=== PATIENT | female | born 1955 | race American Indian/Alaskan Native ===

== ENCOUNTER 2017-08-10 21:45 | Emergency (ER) | payer BC, MEDICARE ==
[2017-08-10] MEDS ORDERED: DiphenhydrAMINE 50 mg/ml Inj IVP STA (21:50)
[2017-08-10] MEDS ORDERED: Sodium Chloride 0.9% 1,000 ML IV SCH (22:15)
--- NOTE | 2017-08-10 22:15 | ED PDOC ---
Arrival/HPI - General Historian: Patient - History of Present Illness Activities at Onset: Light <Kevin Montilla - Last Filed: 08/10/17 22:37> - General Historian: Patient - History of Present Illness Time/Duration: Other (started at 21:15, arrived at 21:50) Symptom Onset: Sudden Symptom Course: Improving <Marcia Trorez - Last Filed: 08/11/17 01:16> - General Time Seen by Provider: 08/10/17 21:47 - History of Present Illness Narrative History of Present Illness (Text): 08/10/17 22:12 62F presents with difficulty breathing and tongue swelling after eating shrimp for dinner at 21:15. Patient states that she's had one other incident of allergic reaction in the past in 1998, patient had shrimp and had tongue swelling that was more enlarged than this ER visit. Patient states she feels a little better than when she came in. Patient states she's feeling pruritis all over. Patient states she does not take ACEI inhibitor 08/10/17 22:13 allergies: shellfish (shrimp) leads to tongue swelling, edema, rash, and sob ( Marcia Torrez) Past Medical History - Provider Review Nursing Documentation Reviewed: Yes - Travel History Have you recently traveled outside [place] w/in the past 3 mons?: No - Cardiac Hx Pacemaker: No - Neurological Hx Paralysis: No - Hematological/Oncological Hx Blood Transfusions: No Hx Blood Transfusion Reaction: No - Musculoskeletal/Rheumatological Hx Musculoskeletal Disorders: Yes - Psychiatric Hx Emotional Abuse: No Hx Physical Abuse: No Hx Substance Use: No - Anesthesia Hx Anesthesia Reactions: No Hx Malignant Hyperthermia: No - Suicidal Assessment Feels Threatened In Home Enviroment: No <Marcia Torrez - Last Filed: 08/11/17 01:16> Family/Social History - Physician Review Nursing Documentation Reviewed: Yes Family/Social History: No Known Family HX Smoking Status: Never Smoked Hx Alcohol Use: Yes (OCCASIONAL) Hx Substance Use: No <Marcia Torrez - Last Filed: 08/11/17 01:16> Allergies/Home Meds <Kevin Montilla - Last Filed: 08/10/17 22:37> <Marcia Torrez - Last Filed: 08/11/17 01:16> Allergies/Adverse Reactions: Allergies shellfish derived Allergy (Verified 08/10/17 21:55) ANAPHYLAXIS Home Medications: Home Meds Medication Instructions Recorded Confirmed Armodafinil [Nuvigil] 150 mg PO DAILY 08/16/12 08/16/12 Atropine Sulf/Hyoscyamine Agosto 2 tab PO WM 08/16/12 08/16/12 [] Dexlansoprazole [Dexilant] 60 mg PO DAILY 08/16/12 08/16/12 Diclofenac Potassium [Cambia] 50 mg PO PRN 08/16/12 08/16/12 Duloxetine Hydrochloride [Cymbalta] 60 mg PO QPM 08/16/12 08/16/12 Gabapentin [Gralise] 300 mg PO QAM 08/16/12 08/16/12 Gabapentin [Gralise] 600 mg PO QPM 08/16/12 08/16/12 Ibandronate Sodium [Boniva] 150 mg PO Q30D 08/16/12 08/16/12 Levalbuterol Tartrate [Xopenex Hfa] 1 puff IH PRN 08/16/12 08/16/12 Lubiprostone [Amitiza] 2 tab PO DAILY 08/16/12 08/16/12 Metoclopramide Hydrochloride 10 mg PO PRN 08/16/12 08/16/12 [Reglan] l-Methylfolate/Methylcobalam1 1 tab PO DAILY 08/16/12 08/16/12 [Metanx 2.8 mg-2 mg-25 mg] Metoprolol Tartrate [Lopressor] 25 mg PO BID 08/19/12 08/19/12 Cefadroxil [Duricef] 500 mg PO 08/21/12 08/21/12 Tylenol/Codiene 30 PO Q4 PRN 08/21/12 08/21/12 Review of Systems - Physician Review All systems were reviewed & negative as marked: Yes - Review of Systems Constitutional: absent: Fatigue, Weight Change, Fevers Eyes: absent: Vision Changes, Photophobia, Eye Pain ENT: Other (tongue swelling). absent: Hearing Changes, Tinnitus, TMJ Pain, Sinus Congestion Respiratory: SOB. absent: Cough, Wheezing Cardiovascular: absent: Chest Pain, Palpitations, Edema Gastrointestinal: absent: Abdominal Pain, Stool Changes, Constipation, Appetite Changes, Hematochezia, Hematemesis Genitourinary Female: absent: Dysuria, Frequency, Hematuria Musculoskeletal: absent: Arthralgias, Back Pain, Neck Pain Skin: Rash. absent: Pruritis, Skin Lesions, Laceration Neurological: Headache. absent: Dizziness, Focal Weakness, Gait Changes, Facial Droop, Disequilibrium Endocrine: absent: Diaphoresis Hemo/Lymphatic: absent: Adenopathy, Easy Bleeding, Easy Bruising Psychiatric: absent: Anxiety, Depression, Suicidal Ideation <Eng,Marcia - Last Filed: 08/11/17 01:16> Physical Exam Vital Signs Reviewed: Yes Temperature: Afebrile Blood Pressure: Normal Pulse: Regular Respiratory Rate: Normal Appearance: Positive for: Uncomfortable Mental Status: Positive for: Alert and Oriented X 3 - Systems Exam Head: Present: Atraumatic, Normocephalic Pupils: Present: PERRL Extroacular Muscles: Present: EOMI, Other (periorbital swelling) Conjunctiva: Present: Normal. No: Injected, Icteric Mouth: Present: Moist Mucous Membranes Pharnyx: Present: Muffled/Hoarse Voice (patient has an enlarged tongue). No: Strider Nose (External): Present: Atraumatic. No: Abrasion, Contusion, Laceration Nose (Internal): Present: Normal Inspection, Moist. No: No Active Bleeding, Engorged, Edematous Neck: Present: Normal Range of Motion, Trachea Midline. No: JVD, Lymphadenopathy Respiratory/Chest: Present: Clear to Auscultation, Good Air Exchange, Decreased Breath Sounds. No: Respiratory Distress, Accessory Muscle Use, Wheezes, Retracting, Rhonchi Cardiovascular: Present: Regular Rate and Rhythm, Normal S1, S2. No: Murmurs Abdomen: Present: Distention, Normal Bowel Sounds. No: Tenderness, Peritoneal Signs Back: Present: Normal Inspection. No: CVA Tenderness, Midline Tenderness Upper Extremity: Present: Normal Inspection, Normal ROM, NORMAL PULSES, Capillary Refill < 2s. No: Edema Lower Extremity: Present: Normal Inspection, NORMAL PULSES, Normal ROM, Capillary Refill < 2 s. No: Edema Neurological: Present: GCS=15, CN II-XII Intact, Speech Normal Skin: Present: Warm, Dry, Normal Color Psychiatric: Present: Alert, Oriented x 3, Normal Insight, Normal Concentration <Eng,Marcia - Last Filed: 08/11/17 01:16> Vital Signs Temp Pulse Resp BP Pulse Ox 08/10/17 23:23 98.4 F 61 17 161/80 H 98 Medical Decision Making <Kevin Montilla - Last Filed: 08/10/17 22:37> <Marcia Torrez - Last Filed: 08/11/17 01:16> ED Course and Treatment: Patient Seen With Resident: In agreement with resident note which contains more details about the patient. Patient was seen and evaluated with resident. Came up with plan and treatment together. 62 year old female presents complaining of difficulty breathing and tongue swelling after eating shrimp for Dinner 1-2 hours ago. Plan: -- Benadryl -- Pepcid -- Solu-Medrol -- IV Fluids -- Zofran Inj (Kevin Montilla) 08/10/17 22:21 Solumedrol 125mg IVP stat Benadryl 50cc IVP Stat Zofran 4mg IVP stat Pepcid 20 mg IVP stat IVF NS 100cc/hr 08/10/17 22:36 Revisited. Patient states she's feeling better but still feels like her mouth is full. Tongue is smaller than on arrival (Marcia Torrez) - Medication Orders Current Medication Orders: Sodium Chloride (Sodium Chloride 0.9%) 1,000 mls @ 100 mls/hr IV .Q10H TIANNA Last Admin: 08/10/17 22:22 Dose: 100 mls/hr eMAR Start Stop Document 08/10/17 22:22 RD (Rec: 08/10/17 22:22 RD [id number]) Intravenous Solution Start Date 08/10/17 Start Time 22:22 Discontinued Medications Diphenhydramine HCl (Benadryl) 50 mg IVP STAT STA Stop: 08/10/17 21:51 Last Admin: 08/10/17 21:45 Dose: 50 mg IVP Administration Document 08/10/17 21:45 RD (Rec: 08/10/17 22:22 RD [id number]) Charges for Administration # of IVP Administrations 1 Famotidine (Pepcid) 20 mg IVP STAT STA Stop: 08/10/17 22:07 Last Admin: 08/10/17 22:22 Dose: 20 mg IVP Administration Document 08/10/17 22:22 RD (Rec: 08/10/17 22:22 RD [id number]) Charges for Administration # of IVP Administrations 1 Methylprednisolone (Solu-Medrol) 125 mg IVP STAT STA Stop: 08/10/17 21:51 Last Admin: 08/10/17 21:45 Dose: 125 mg IVP Administration Document 08/10/17 21:45 RD (Rec: 08/10/17 22:22 RD [id number]) Charges for Administration # of IVP Administrations 1 Ondansetron HCl (Zofran Inj) 4 mg IVP STAT STA Stop: 08/10/17 21:51 Last Admin: 08/10/17 21:50 Dose: 4 mg IVP Administration Document 08/10/17 21:50 RD (Rec: 08/10/17 22:22 RD [id number]) Charges for Administration # of IVP Administrations 1 - Scribe Statement The provider has reviewed the documentation as recorded by the Scribe <Kevin Montilla - Last Filed: 08/10/17 22:37> <Marcia Torrez - Last Filed: 08/11/17 01:16> - Scribe Statement Jaymie Villatoro Provider Scribe Attestation: All medical record entries made by the Scribe were at my direction and personally dictated by me. I have reviewed the chart and agree that the record accurately reflects my personal performance of the history, physical exam, medical decision making, and the department course for this patient. I have also personally directed, reviewed, and agree with the discharge instructions and disposition. (Kevin Montilla) Disposition/Present on Arrival <Kevin Montilla - Last Filed: 08/10/17 22:37> - Present on Arrival Any Indicators Present on Arrival: No History of DVT/PE: No History of Uncontrolled Diabetes: No Urinary Catheter: No History of Decub. Ulcer: No History Surgical Site Infection Following: None - Disposition Have Diagnosis and Disposition been Completed?: Yes Disposition Time: :16 Patient Plan: Discharge <Marcia Torrez - Last Filed: 08/11/17 01:16> - Disposition Diagnosis: Allergic reaction Disposition: HOME/ ROUTINE Patient Problems: Current Active Problems Problem Status Onset Allergic reaction Acute Condition: IMPROVED Additional Instructions: take 25mg Benadryl in the morning, return if cannot breathe, shortness of breath , symptoms worsen follow up with primary care doctor Prescriptions: DiphenhydrAMINE [Benadryl] 25 mg PO ONCE #1 cap Referrals: Lin Hsieh, [Primary Care Provider] - Follow up with primary
[2017-08-10 22:19] VITALS: BMI 34.9
[2017-08-10 23:24] VITALS: RESP 17; TEMP 98.4
[2017-08-11 02:46] VITALS: BP 155/70; PULSE 67; O2SAT 100
== END 2017-08-11 01:50 | disposition home or self-care (01) ==
LOC: ED 21:45
DX: T78.40XA Allergy, unspecified, initial encounter (principal); X58.XXXA Exposure to other specified factors, initial encounter
CPT/HCPCS: 96374; 96375; 99283; J1200; J2405; J2930; J7040